=== PATIENT | female | born 1955 | race African-American/Black ===

== ENCOUNTER 2024-04-04 21:37 | Emergency (ER) | payer MEDICARE, MEDICAID ==
[~2024-04-04] VITALS: Ht 165.1 cm; Wt 91.0 kg
[~2024-04-04 21:37] MED LIST: HYDR1TAB4 PO
[2024-04-04 21:42] VITALS: TEMP 98.3; O2SAT 100
[2024-04-05] MEDS: KETOROLAC 30MG/ML VIAL IM ONE (01:02)
[2024-04-05] MEDS: TETANUS, DIPHTHERIA, PERTUSSIS VAC/PF 0.5ML (>10YR OLD) IM ONE (01:02)
[2024-04-05] MEDS: LIDOCAINE HCL/PF 1% 10 MG/ML 5ML VIAL INFIL ONE (01:52)
[2024-04-05] MEDS: BACITRACIN ZINC OINT UDPKT TOP ONE (01:53)
[2024-04-05 02:31] VITALS: BP 107/92; PULSE 71; RESP 15
[2024-04-05] MEDS: CYCLOBENZAPRINE 10MG TABLET PO PRN (02:39)
== END 2024-04-05 02:40 | disposition home or self-care (01) ==
LOC: ER 22:26
DX: S61.212A Laceration without foreign body of right middle finger without damage to nail, initial encounter (principal); W19.XXXA Unspecified fall, initial encounter; Y93.89 Activity, other specified; Y92.89 Other specified places as the place of occurrence of the external cause; Y99.8 Other external cause status
CPT/HCPCS: 99284; 73140; 90715; 12002; 90471; 96372; J1885; J3490